=== PATIENT | male | born 1960 | race African-American/Black ===

== ENCOUNTER 2023-06-27 09:51 | Inpatient (IN) | payer OTHER ==
[~2023-06-27] VITALS: Ht 182.9 cm; Wt 108.4 kg
[2023-06-27 10:40] VITALS: BP_SYST 120; PULSE 82; RESP 18; TEMP 97.8; O2SAT 97
[2023-06-27 11:03] LABS: BASOPHILS % (AUTO) 0.3 % (0.0-2.0); EOSINOPHILS # (AUTO) 0.1 K/uL (0.0-0.4); EOSINOPHILS % (AUTO) 1.6 % (0.0-4.0); HEMATOCRIT 30.8 % (36-54); HEMOGLOBIN 10.1 g/dL (14.0-18.0); LYMPHOCYTES # (AUTO) 1.3 K/uL (1.0-5.5); LYMPHOCYTES % (AUTO) 17.4 % (20.5-51.5); MEAN CORPUSCULAR HEMOGLOBIN 27 pg (27-31); MEAN CORPUSCULAR HGB CONC 33 % (32-36); MEAN CORPUSCULAR VOLUME 82 fL (79.0-98.0); MONOCYTES # (AUTO) 0.3 K/uL (0.0-1.0); MONOCYTES % (AUTO) 4.2 % (1.7-9.3); NEUTROPHILS # (AUTO) 5.8 K/uL (1.8-7.7); NEUTROPHILS % (AUTO) 76.5 % (40.0-70.0); PLATELET COUNT (AUTO) 212 K/uL (130-430); RED BLOOD CELL COUNT(AUTO) 3.74 MIL/uL (4.2-6.2); RED CELL DISTRIBUTION WIDTH 20.5 % (9.0-15.0); WHITE BLOOD COUNT (AUTO) 7.5 K/uL (4.8-10.8)
[2023-06-27 11:14] LABS: ANION GAP 14 (5-15); CALCIUM 8.5 mg/dL (8.4-11.0); CARBON DIOXIDE 22 mmol/L (23-29); CHLORIDE 99 mmol/L (98-107); GFR AFRICAN AMERICAN 109 mL/min (>90); GLUCOSE 107 mg/dL (74-106); SODIUM SERUM 135 mmol/L (136-145); UREA NITROGEN, BLOOD 9 mg/dL (8-21)
[2023-06-27 11:15] LABS: BILIRUBIN,URINE 1+ (NEGATIVE); BLOOD, URINE NEGATIVE (NEGATIVE); CLARITY/URINE Clear (CLEAR); COLOR,URINE Dark yellow (YELLOW); GLUCOSE,URINE NEGATIVE (NEGATIVE); KETONES,URINE 1+ (NEGATIVE); NITRITE, URINE NEGATIVE (NEGATIVE); PROTEIN URINE NEGATIVE (NEGATIVE)
[2023-06-27 11:16] LABS: GFR NON AFRICAN-AMERICAN 90 mL/min (>90); INR 1.1 (0.80-1.20); PROTHROMBIN TIME 10.9 SECS (9.5-12.5)
[2023-06-27 11:22] LABS: LEUKOCYTE ESTERASE ,URINE NEGATIVE (NEGATIVE)
[2023-06-27 11:23] LABS: ALANINE AMINOTRANSFERASE 30 U/L (12-78); ASPARTATE AMINOTRANSFERASE 25 U/L (10-37); CREATINE KINASE, TOTAL 69 U/L (39-308); FREE T4 (FREE THYROXINE) 1.6 ng/dL (0.6-1.6); THYROID STIMULATING HORMONE 1.84 uIu/mL (0.34-4.82); TOTAL BILIRUBIN 0.9 mg/dL (0.0-1.0); TOTAL PROTEIN, SERUM 6.1 g/dL (6.4-8.3)
[2023-06-27 11:27] LABS: ACETONE, SERUM NEGATIVE (NEGATIVE)
[2023-06-27] MEDS ORDERED: BISA-79 PO (14:00)
[2023-06-27] MEDS ORDERED: ACET325T PO (14:00)
[2023-06-27] MEDS ORDERED: VENL37.55 PO (14:00)
[2023-06-27] MEDS ORDERED: ALPR0.5T PO (14:00)
[2023-06-27] MEDS ORDERED: METO-442 PO (14:00)
[2023-06-27] MEDS ORDERED: MELA5TAB12 PO (14:00)
[2023-06-27] MEDS ORDERED: RISP4TAB4 PO (14:00)
[2023-06-27] MEDS ORDERED: POLY17PO4 PO (14:00)
[2023-06-27] MEDS ORDERED: HYDR-3917 PO (14:00)
[2023-06-27] MEDS ORDERED: BENZ2AMP PO (14:00)
[2023-06-27] MEDS ORDERED: VIS50 PO (14:00)
[2023-06-27] MEDS: D5/0.45 NS 1,000 ML IV SCH (14:12)
[2023-06-27 16:31] VITALS: BP_SYST 140; PULSE 86; RESP 18; TEMP 97.4
[2023-06-27 16:38] VITALS: O2SAT 99
[2023-06-27] MEDS ORDERED: NALOXONE HCL 0.4 MG/ML AMP (NARCAN) IVP PRN (18:30)
[2023-06-27] MEDS ORDERED: BISACODYL 5 MG TABLET.DR (DULCOLAX) PO SCH (18:30)
[2023-06-27] MEDS ORDERED: ACETAMINOPHEN 325 MG TABLET PO PRN (18:30)
[2023-06-27] MEDS: risperiDONE 1 MG TABLET (RisperDAL) PO SCH (20:21)
[2023-06-27] MEDS: ENOXAPARIN SODIUM 40 MG/0.4 ML SYRINGE SUBCUT SCH (20:22)
[2023-06-27] MEDS: ALPRAZolam 0.25 MG TABLET PO SCH (20:22)
[2023-06-27] MEDS: BENZTROPINE MESYLATE 1 MG TABLET PO SCH (20:22)
[2023-06-28 00:20] VITALS: BP_SYST 146; PULSE 98; RESP 17; TEMP 96.3; O2SAT 95
[2023-06-28] MEDS: D5/0.45 NS 1,000 ML IV SCH ×2 (03:05→17:04)
[2023-06-28] MEDS: ALPRAZolam 0.25 MG TABLET PO PRN ×2 (05:56→13:22)
[2023-06-28 08:30] VITALS: BP_SYST 160; PULSE 92; RESP 17; TEMP 98.3; O2SAT 98
[2023-06-28] MEDS: BENZTROPINE MESYLATE 1 MG TABLET PO SCH ×3 (09:00→22:06)
[2023-06-28] MEDS: POLYETHYLENE GLYCOL 3350, 17 GM/ POWD.PACK PO SCH (09:00)
[2023-06-28] MEDS: ALPRAZolam 0.25 MG TABLET PO SCH ×2 (09:00→15:00)
[2023-06-28] MEDS: METOPROLOL TARTRATE 50 MG TABLET PO SCH ×2 (09:00→13:36)
[2023-06-28] MEDS: risperiDONE 1 MG TABLET (RisperDAL) PO SCH ×3 (09:00→22:05)
[2023-06-28] MEDS: Effexor XR 37.5 MG PO SCH ×2 (09:00→13:34)
[2023-06-28 10:17] VITALS: O2SAT 98
[2023-06-28 11:30] VITALS: BP_SYST 154; PULSE 102; RESP 20; TEMP 97.8; O2SAT 97
[2023-06-28] MEDS: HYDROcodone/ACETAMIN 5-325 MG TAB (NORCO/ VICODIN) PO PRN (13:35)
[2023-06-28 17:22] VITALS: BP_SYST 135; PULSE 83; RESP 17; TEMP 98; O2SAT 96
[2023-06-28] MEDS ORDERED: FLUMAZENIL 0.1 MG/ML IVP ONE ×2 (18:02→18:30)
[2023-06-28 20:00] VITALS: BP_SYST 109; PULSE 82; RESP 18; TEMP 97.7; O2SAT 99
[2023-06-28] MEDS: MELATONIN 5 MG TABLET PO SCH (22:05)
[2023-06-28] MEDS: ENOXAPARIN SODIUM 40 MG/0.4 ML SYRINGE SUBCUT SCH (22:06)
[2023-06-29] MEDS: D5/0.45 NS 1,000 ML IV SCH ×2 (00:04→20:34)
[2023-06-29 00:10] VITALS: BP_SYST 140; PULSE 79; RESP 16; TEMP 97.9; O2SAT 97
[2023-06-29 06:19] LABS: BASOPHILS % (AUTO) 0.2 % (0.0-2.0); EOSINOPHILS # (AUTO) 0.1 K/uL (0.0-0.4); EOSINOPHILS % (AUTO) 2.1 % (0.0-4.0); HEMOGLOBIN 10.7 g/dL (14.0-18.0); LYMPHOCYTES # (AUTO) 1.4 K/uL (1.0-5.5); LYMPHOCYTES % (AUTO) 21.5 % (20.5-51.5); MEAN CORPUSCULAR HEMOGLOBIN 27 pg (27-31); MEAN CORPUSCULAR HGB CONC 32 % (32-36); MEAN CORPUSCULAR VOLUME 84 fL (79.0-98.0); MONOCYTES # (AUTO) 0.3 K/uL (0.0-1.0); MONOCYTES % (AUTO) 4.4 % (1.7-9.3); NEUTROPHILS # (AUTO) 4.6 K/uL (1.8-7.7); NEUTROPHILS % (AUTO) 71.8 % (40.0-70.0); PLATELET COUNT (AUTO) 195 K/uL (130-430); RED BLOOD CELL COUNT(AUTO) 3.95 MIL/uL (4.2-6.2); RED CELL DISTRIBUTION WIDTH 20.6 % (9.0-15.0); WHITE BLOOD COUNT (AUTO) 6.5 K/uL (4.8-10.8)
[2023-06-29 06:53] LABS: CALCIUM 8.8 mg/dL (8.4-11.0); CREATININE 0.79 mg/dL (0.55-1.30); POTASSIUM 3.4 mmol/L (3.5-5.1)
[2023-06-29 07:50] VITALS: BP_SYST 136; PULSE 94; RESP 18; TEMP 98.1; O2SAT 99
[2023-06-29] MEDS: POLYETHYLENE GLYCOL 3350, 17 GM/ POWD.PACK PO SCH (09:00)
[2023-06-29] MEDS: risperiDONE 1 MG TABLET (RisperDAL) PO SCH ×2 (09:03→20:31)
[2023-06-29] MEDS: Effexor XR 37.5 MG PO SCH (09:04)
[2023-06-29] MEDS: BENZTROPINE MESYLATE 1 MG TABLET PO SCH ×2 (09:05→20:32)
[2023-06-29] MEDS: METOPROLOL TARTRATE 50 MG TABLET PO SCH (09:06)
[2023-06-29 11:30] VITALS: BP_SYST 120; PULSE 83; RESP 17; TEMP 99; O2SAT 99
[2023-06-29] MEDS ORDERED: POTASSIUM CHLORIDE 20 MEQ/PKT PACKET PO ONE (14:45)
[2023-06-29 14:54] VITALS: O2SAT 95
[2023-06-29 17:30] VITALS: BP_SYST 135; PULSE 84; RESP 19; TEMP 98; O2SAT 98
[2023-06-29 20:00] VITALS: BP_SYST 126; PULSE 89; RESP 18; TEMP 98.4; O2SAT 99
[2023-06-29] MEDS: QUEtiapine FUMARATE 25 MG TABLET PO SCH (20:32)
[2023-06-29] MEDS: ENOXAPARIN SODIUM 40 MG/0.4 ML SYRINGE SUBCUT SCH (20:32)
[2023-06-29] MEDS: MELATONIN 5 MG TABLET PO SCH (22:02)
[2023-06-29] MEDS ORDERED: MELATONIN 5 MG TABLET PO ONE (22:03)
[2023-06-30] VITALS (7 sets, daily range): BP systolic 107–149; PULSE 97–102; RESP 16–20; TEMP 97.3–98.6; O2SAT 95–99
[2023-06-30] MEDS: D5/0.45 NS 1,000 ML IV SCH (08:25)
[2023-06-30] MEDS: risperiDONE 1 MG TABLET (RisperDAL) PO SCH ×2 (09:03→20:10)
[2023-06-30] MEDS: BENZTROPINE MESYLATE 1 MG TABLET PO SCH ×2 (09:03→20:11)
[2023-06-30] MEDS: POLYETHYLENE GLYCOL 3350, 17 GM/ POWD.PACK PO SCH (09:04)
[2023-06-30] MEDS: METOPROLOL TARTRATE 50 MG TABLET PO SCH (09:04)
[2023-06-30] MEDS: Effexor XR 37.5 MG PO SCH (09:05)
[2023-06-30] MEDS: HYDROcodone/ACETAMIN 5-325 MG TAB (NORCO/ VICODIN) PO PRN (09:14)
[2023-06-30] MEDS: QUEtiapine FUMARATE 25 MG TABLET PO SCH (20:10)
[2023-06-30] MEDS: KCL 20 mEq in D5/0.45NS 1000mL 1,000 ML IV SCH (20:10)
[2023-06-30] MEDS: ENOXAPARIN SODIUM 40 MG/0.4 ML SYRINGE SUBCUT SCH (20:11)
[2023-06-30] MEDS: MELATONIN 5 MG TABLET PO SCH (20:11)
[2023-07-01 00:16] VITALS: BP_SYST 127; PULSE 82; RESP 15; TEMP 98; O2SAT 97
[2023-07-01] MEDS: HYDROcodone/ACETAMIN 5-325 MG TAB (NORCO/ VICODIN) PO PRN ×3 (04:37→22:34)
[2023-07-01] MEDS: KCL 20 mEq in D5/0.45NS 1000mL 1,000 ML IV SCH ×2 (04:41→14:00)
[2023-07-01 04:45] LABS: BASOPHILS % (AUTO) 0.2 % (0.0-2.0); EOSINOPHILS # (AUTO) 0.2 K/uL (0.0-0.4); EOSINOPHILS % (AUTO) 1.6 % (0.0-4.0); HEMATOCRIT 31.4 % (36-54); LYMPHOCYTES # (AUTO) 1.3 K/uL (1.0-5.5); LYMPHOCYTES % (AUTO) 13.3 % (20.5-51.5); MEAN CORPUSCULAR HEMOGLOBIN 26 pg (27-31); MEAN CORPUSCULAR HGB CONC 32 % (32-36); MEAN CORPUSCULAR VOLUME 83 fL (79.0-98.0); MONOCYTES # (AUTO) 0.5 K/uL (0.0-1.0); MONOCYTES % (AUTO) 5.4 % (1.7-9.3); NEUTROPHILS # (AUTO) 7.7 K/uL (1.8-7.7); NEUTROPHILS % (AUTO) 79.5 % (40.0-70.0); PLATELET COUNT (AUTO) 199 K/uL (130-430); RED BLOOD CELL COUNT(AUTO) 3.79 MIL/uL (4.2-6.2); RED CELL DISTRIBUTION WIDTH 20.5 % (9.0-15.0); WHITE BLOOD COUNT (AUTO) 9.6 K/uL (4.8-10.8)
[2023-07-01 04:53] LABS: CALCIUM 8.4 mg/dL (8.4-11.0); CREATININE 0.81 mg/dL (0.55-1.30); POTASSIUM 3.7 mmol/L (3.5-5.1)
[2023-07-01 08:00] VITALS: BP_SYST 134; PULSE 108; RESP 16; TEMP 97.2; O2SAT 99
[2023-07-01] MEDS: Effexor XR 37.5 MG PO SCH (08:22)
[2023-07-01] MEDS: risperiDONE 1 MG TABLET (RisperDAL) PO SCH ×2 (08:22→21:34)
[2023-07-01] MEDS: POLYETHYLENE GLYCOL 3350, 17 GM/ POWD.PACK PO SCH (08:22)
[2023-07-01] MEDS: BENZTROPINE MESYLATE 1 MG TABLET PO SCH ×2 (08:23→21:34)
[2023-07-01] MEDS: METOPROLOL TARTRATE 50 MG TABLET PO SCH (08:23)
[2023-07-01 16:32] VITALS: BP_SYST 100; PULSE 84; RESP 18; TEMP 97.7; O2SAT 96
[2023-07-01 20:00] VITALS: BP_SYST 138; PULSE 93; RESP 17; TEMP 98.4; O2SAT 99
[2023-07-01] MEDS: QUEtiapine FUMARATE 25 MG TABLET PO SCH (21:34)
[2023-07-01] MEDS: MELATONIN 5 MG TABLET PO SCH (21:35)
[2023-07-01] MEDS: ENOXAPARIN SODIUM 40 MG/0.4 ML SYRINGE SUBCUT SCH (21:35)
[2023-07-01 23:38] VITALS: O2SAT 99
[2023-07-02] VITALS (8 sets, daily range): BP systolic 122–158; PULSE 86–98; RESP 18–22; TEMP 97.4–98.9; O2SAT 96–100
[2023-07-02] MEDS: KCL 20 mEq in D5/0.45NS 1000mL 1,000 ML IV SCH ×3 (04:10→15:49)
[2023-07-02] MEDS: ALPRAZolam 0.25 MG TABLET PO PRN ×2 (04:40→14:56)
[2023-07-02] MEDS: HYDROcodone/ACETAMIN 5-325 MG TAB (NORCO/ VICODIN) PO PRN ×3 (06:21→22:13)
[2023-07-02] MEDS: METOPROLOL TARTRATE 50 MG TABLET PO SCH (09:37)
[2023-07-02] MEDS: risperiDONE 1 MG TABLET (RisperDAL) PO SCH ×2 (09:37→20:27)
[2023-07-02] MEDS: BENZTROPINE MESYLATE 1 MG TABLET PO SCH ×2 (09:37→20:26)
[2023-07-02] MEDS: POLYETHYLENE GLYCOL 3350, 17 GM/ POWD.PACK PO SCH (09:38)
[2023-07-02 10:06] LABS: FOLATE (FOLIC ACID) <2.0 ng/mL (>3.0)
[2023-07-02] MEDS: Effexor XR 37.5 MG PO SCH (10:06)
[2023-07-02] MEDS: QUEtiapine FUMARATE 25 MG TABLET PO SCH (20:27)
[2023-07-02] MEDS: MELATONIN 5 MG TABLET PO SCH (20:27)
[2023-07-02] MEDS: ENOXAPARIN SODIUM 40 MG/0.4 ML SYRINGE SUBCUT SCH (20:27)
[2023-07-03] VITALS (7 sets, daily range): BP systolic 112–155; PULSE 91–114; RESP 16–20; TEMP 97.2–98.4; O2SAT 95–98
[2023-07-03] MEDS: BENZTROPINE MESYLATE 1 MG TABLET PO SCH ×2 (09:51→21:07)
[2023-07-03] MEDS: Effexor XR 37.5 MG PO SCH (09:52)
[2023-07-03] MEDS: risperiDONE 1 MG TABLET (RisperDAL) PO SCH ×2 (09:54→21:08)
[2023-07-03] MEDS: METOPROLOL TARTRATE 50 MG TABLET PO SCH (09:57)
[2023-07-03] MEDS: POLYETHYLENE GLYCOL 3350, 17 GM/ POWD.PACK PO SCH (10:05)
[2023-07-03] MEDS: KCL 20 mEq in D5/0.45NS 1000mL 1,000 ML IV SCH ×2 (19:09→21:07)
[2023-07-03] MEDS: QUEtiapine FUMARATE 25 MG TABLET PO SCH (21:08)
[2023-07-03] MEDS: ENOXAPARIN SODIUM 40 MG/0.4 ML SYRINGE SUBCUT SCH (21:09)
[2023-07-03] MEDS: MELATONIN 5 MG TABLET PO SCH (21:10)
[2023-07-03] MEDS: HYDROcodone/ACETAMIN 5-325 MG TAB (NORCO/ VICODIN) PO PRN (21:13)
[2023-07-04] VITALS (8 sets, daily range): BP systolic 118–152; PULSE 70–102; RESP 16–18; TEMP 96.6–99; O2SAT 95–99
[2023-07-04] MEDS: KCL 20 mEq in D5/0.45NS 1000mL 1,000 ML IV SCH ×2 (06:12→12:38)
[2023-07-04 07:43] LABS: BASOPHILS % (AUTO) 0.2 % (0.0-2.0); EOSINOPHILS # (AUTO) 0.3 K/uL (0.0-0.4); EOSINOPHILS % (AUTO) 3.8 % (0.0-4.0); HEMATOCRIT 31.7 % (36-54); HEMOGLOBIN 10.2 g/dL (14.0-18.0); LYMPHOCYTES # (AUTO) 1.7 K/uL (1.0-5.5); LYMPHOCYTES % (AUTO) 24.2 % (20.5-51.5); MEAN CORPUSCULAR HEMOGLOBIN 27 pg (27-31); MEAN CORPUSCULAR HGB CONC 32 % (32-36); MEAN CORPUSCULAR VOLUME 83 fL (79.0-98.0); MONOCYTES # (AUTO) 0.6 K/uL (0.0-1.0); MONOCYTES % (AUTO) 8.3 % (1.7-9.3); NEUTROPHILS # (AUTO) 4.3 K/uL (1.8-7.7); NEUTROPHILS % (AUTO) 63.5 % (40.0-70.0); PLATELET COUNT (AUTO) 248 K/uL (130-430); RED BLOOD CELL COUNT(AUTO) 3.81 MIL/uL (4.2-6.2); RED CELL DISTRIBUTION WIDTH 20.2 % (9.0-15.0); WHITE BLOOD COUNT (AUTO) 6.8 K/uL (4.8-10.8)
[2023-07-04 08:01] LABS: CALCIUM 8.7 mg/dL (8.4-11.0); CREATININE 0.83 mg/dL (0.55-1.30)
[2023-07-04] MEDS: BENZTROPINE MESYLATE 1 MG TABLET PO SCH ×2 (08:34→20:17)
[2023-07-04] MEDS: risperiDONE 1 MG TABLET (RisperDAL) PO SCH ×2 (08:36→20:19)
[2023-07-04] MEDS: METOPROLOL TARTRATE 50 MG TABLET PO SCH (08:36)
[2023-07-04] MEDS: POLYETHYLENE GLYCOL 3350, 17 GM/ POWD.PACK PO SCH (08:39)
[2023-07-04] MEDS: Effexor XR 37.5 MG PO SCH (08:39)
[2023-07-04] MEDS: MELATONIN 5 MG TABLET PO SCH (20:18)
[2023-07-04] MEDS: QUEtiapine FUMARATE 25 MG TABLET PO SCH (20:19)
[2023-07-04] MEDS: ENOXAPARIN SODIUM 40 MG/0.4 ML SYRINGE SUBCUT SCH (20:20)
== END 2023-07-04 21:50 | DRG 640 ==
LOC: SED 09:51 → SMU 13:41 → STU 06-28 18:12 → SMU 07-01 11:37
PROVIDERS: ADMIT Family Medicine; ATTEND Family Medicine
PROC: 4A00X4Z Measurement of Central Nervous Electrical Activity, External Approach (ICD-10-PCS; principal; 2023-06-29)
DX: E86.0 Dehydration (principal); G92.8 Other toxic encephalopathy; F03.93 Unspecified dementia, unspecified severity, with mood disturbance; F31.5 Bipolar disorder, current episode depressed, severe, with psychotic features; I48.20 Chronic atrial fibrillation, unspecified; T42.4X5A Adverse effect of benzodiazepines, initial encounter; Y92.9 Unspecified place or not applicable; R27.0 Ataxia, unspecified; D64.9 Anemia, unspecified; Z20.822 Contact with and (suspected) exposure to COVID-19; I10 Essential (primary) hypertension; Z56.0 Unemployment, unspecified
CPT/HCPCS: 36415; 70450-TC; 71045; 73502; 76376; 80048; 80053; 81003; 82009; 82085; 82550; 82607; 82746; 83605; 83735; 84439; 84443; 84484; 85025; 85610-TC; 85651-TC; 85730-TC; 93005; 95816; 97110-GP; 97163-GP; 97530-GP; 99285; G0378; J1650; J3490